=== PATIENT | male | born 1950 | race Caucasian/White ===

== ENCOUNTER 2018-07-28 18:42 | Inpatient (IN) | payer OTHER ==
--- OUTSIDE RECORDS SUMMARY | 2018-07-28 18:45 | XMS REPORT ---
:1950 Author Organization [facility] Address [address] [place] [address] Care Team Providers Name Role Phone LIBRADO OLIVEROS Unavailable Unavailable Problems This patient has no known problems. Allergies, Adverse Reactions, Alerts This patient has no known allergies or adverse reactions. Medications This patient has no known medications. Results Test Description Test Time Test Comments Text Results Atomic Results Result Comments PROTEIN ELECTROPHORESIS, SERUM 2017-02-05 14:04:00 Test Item Value Reference Range Comments ALBUMIN FRACTION (BEAKER) (test 3.6 g/dL 3.5-5.5 zejd=765) ALPHA 1 FRACTION (BEAKER) (test 0.3 g/dL 0.2-0.4 jltp=362) ALPHA 2 FRACTION (BEAKER) (test 0.7 g/dL 0.5-0.9 qiwr=932) BETA FRACTION (BEAKER) (test 0.9 g/dL 0.6-1.1 wfbe=759) GAMMA GLOBULIN FRACTION (BEAKER) 1.1 g/dL 0.7-1.7 (test mzwc=530) INTERPRETATION-119 (BEAKER) (test All fractions present in the expected tjim=5622) distribution. No monoclonal bands detected. MTDC-AEIJTLGHZAT-688 (BEAKER) (test Lauren Abdullahi MD (electronic bwxx=3527) signature) PROTEIN TOTAL SERUM, SPEP (BEAKER) 6.6 gm/dL 6.0-8.3 (test nclw=4523) CSF CELL COUNT [id number] 17:01:00 Test Item Value Reference Range Comments APPEARANCE CSF (BEAKER) (test xtkj=775) Clear Clear COLOR CSF (BEAKER) (test vxgn=272) Colorless Colorless RBC CSF (BEAKER) (test ifex=708) 3 /cu mm 0-5 WBC CSF (BEAKER) (test rvjm=5493) 1 /cu mm <=5 RBCS FRESH (BEAKER) (test uega=5064) 100% Fresh NUMBER OF CELLS DIFF'D (BEAKER) (test ykzk=4666) 4 NEUTROPHIL, CSF (BEAKER) (test qkwy=425) 0 % 0-5 LYMPHS CSF (BEAKER) (test xqgt=200) 50 % 40-80 MONO/MACROPHAGE CSF (BEAKER) (test rjdo=489) 50 % 15-45 EOSINOPHILS CSF (BEAKER) (test bhyd=216) 0 % <=0 BASO CSF (BEAKER) (test wtyl=513) 0 % <=0 TUBE NUMBER CSF (BEAKER) (test cnug=4121) 1 PROTEIN, [id number] 14:41:00 Test Item Value Reference Range Comments PROTEIN CSF (BEAKER) (test fjwq=470) 42 mg/dL 15-45 GLUCOSE, [id number] 14:35:00 Test Item Value Reference Range Comments GLUCOSE CSF (BEAKER) (test hnwt=657) 58 mg/dL 40-70
--- OUTSIDE RECORDS SUMMARY | 2018-07-28 18:45 | XMS REPORT | Clinical Summary ---
:1950 Author Organization [facility] Address [address] [place] [address] Care Team Providers Name Role Phone Ranjit Davis MD Primary Care Provider Allergies No Known Allergies Current Medications Prescription Sig. Disp. Refills Start Date End Date Status azaTHIOprine (IMURAN) 50 09/07/2016 Active mg tablet ZETIA 10 mg tablet 07/06/2016 Active lisinopril 08/01/2016 Active (PRINIVIL,ZESTRIL) 10 mg tablet predniSONE (DELTASONE) 5 Take 10 mg by 3 09/15/2016 Active mg tablet mouth once daily. omeprazole (PriLOSEC) 20 Take 20 mg by Active MG capsule mouth daily. etodolac (LODINE) 300 MG Take 300 mg by Active capsule mouth every 8 (eight) hours. leflunomide (ARAVA) 20 MG Take 20 mg by Active tablet mouth daily. Active Problems Problem Noted Date Tendinitis of right rotator cuff 07/13/2018 Tear of right rotator cuff 07/13/2018 Impingement syndrome of right shoulder 06/01/2018 Osteoarthritis of right knee 10/01/2016 Encounters Date Type Specialty Care Team Description 07/13/2018 Office Visit Orthopedic Surgery Abdias Aguilar, Tear of right rotator cuff, unspecified tear extent (Primary Dx); Impingement syndrome of right shoulder; Tendinitis of right rotator cuff 06/01/2018 Office Visit Orthopedic Surgery Abdias Aguilar, Impingement syndrome of right shoulder (Primary Dx); Right shoulder pain, unspecified chronicity after 07/27/2017 Social History Tobacco Use Types Packs/Day Years Used Date Former Smoker Comments: quit at age 39 Alcohol Use Drinks/Week oz/Week Comments Yes social Sex Assigned at Date Recorded Not on file Last Filed Vital Signs Not on file Plan of Treatment Date Type Specialty Care Team Description 08/10/2018 Office Visit Orthopedic Surgery Abdias Aguilar MD [address] [address] Health Maintenance Due Date Last Done Comments COLON CANCER SCREENING 1999 SHINGRIX VACCINE (#1) 1999 ZOSTER VACCINE 2009 PNEUMOCOCCAL POLYSACCHARIDE VACCINE AGE 65 AND OVER 2014 PNEUMOCOCCAL-13 2014 INFLUENZA VACCINE 05/27/2018 Implants Implanted Type Area Senior Data Developer Device Expiration Model / Identifier Date Serial / Lot Advance Evolution Pin Pack 3 Long & 2 Collared Sterile - [id number] IPM IMPLANT Right: MICROPORT 08/06/2024 [id number] / Implanted: Qty: 1 on 10/01/2016 by Roberto Lambert MD DEVICES Knee ORTHOPEDICS / [id number] Evolutionmp Femoral Cs/Cr Non-Por Size 7 Primary Right - [id number] IPM IMPLANT Right: MICROPORT 06/11/2024 [id number] / Implanted: Qty: 1 on 10/01/2016 by Roberto Lambert MD DEVICES Knee ORTHOPEDICS / [id number] Evolutionmp Tibial Keeled Nonpor Size 7 Standard Right - [id number] [id number] IMPLANT Right: MICR[employer]ORT 07/11/2024 [id number] / Implanted: Qty: 1 on 10/01/2016 by Roberto Lambert MD DEVICES Knee ORTHOPEDICS / [id number] Evolution Mp Cs Insert Size 7 Standard 10mm Right - [id number] IPM IMPLANT Right: MICROPORT 04/30/2024 [id number] / Implanted: Qty: 1 on 10/01/2016 by Roberto Lambert MD DEVICES Knee ORTHOPEDICS / [id number] Evolution Pin Pack 3 Long & 2 Collared Sterile - [id number] IPM IMPLANT N/A: MICROPORT 09/26/2021 [id number] / Implanted: 10/02/2016 (Quantity not on file) DEVICES N/A ORTHOPEDICS / [id number] Cement Bone R+G 1dose Palacos - [id number] Knee Joint Right: [employer] [id number] / Implanted: Qty: 1 on 10/01/2016 by Roberto Lambert MD Implants Knee / [id number] Cement Bone R+G 1dose Palacos - [id number] Knee Joint Right: [employer] [id number] / Implanted: Qty: 1 on 10/01/2016 by Roberto Lambert MD Implants Knee / [id number] Patella Onlay 3peg 38mm Pe Advance - [id number] Knee Joint Right: MICROPORT 04/26/2022 [id number] / Implanted: Qty: 1 on 10/01/2016 by Roberto Lambert MD Implants Knee / [id number] Procedures Procedure Name Priority Date/Time Associated Comments Diagnosis SC ARTHROCENTESIS Routine 07/13/2018 12:30 Tear of right Results for this ASPIR&/INJ MAJOR PM CDT rotator cuff, procedure are in JT/BURSA W/O US unspecified tear the results extent section. Impingement syndrome of right shoulder Tendinitis of right rotator cuff SC ARTHROCENTESIS Routine 06/01/2018 9:00 Right shoulder Results for this ASPIR&/INJ MAJOR AM CDT pain, unspecified procedure are in JT/BURSA W/O US chronicity the results Impingement section. syndrome of right shoulder XR SHOULDER 2+ VW RIGHT Routine 06/01/2018 8:51 Right shoulder Results for this AM CDT pain, unspecified procedure are in chronicity the results section. after 07/27/2017 Results Large Joint Arthrocentesis (07/13/2018 12:30 PM) Narrative Performed At Abdias Aguilar MD 07/14/20182:20 PM Large Joint Arthrocentesis Consent given by: patient Supporting Documentation Indications: pain Procedure Details Ultrasound guided: no Platelet Rich Plasma Used: no PRP Used Location: shoulder - R subacromial bursa Right side: Needle size: 25 G Approach: posterior Right shoulder medications administered: 10 mL lidocaine 10 mg/mL (1 %); 6 mg betamethasone acetate & sodium phosphate 6 mg/mL Patient tolerance: patient tolerated the procedure well with no immediate complications Large Joint Arthrocentesis (06/01/2018 9:00 AM) Narrative Performed At Abdias Aguilar MD 06/01/20186:01 PM Large Joint Arthrocentesis Consent given by: patient Supporting Documentation Indications: pain Procedure Details Ultrasound guided: no Platelet Rich Plasma Used: no PRP Used Location: shoulder - R subacromial bursa Right side: Needle size: 25 G Approach: posterior Right shoulder medications administered: 10 mL lidocaine 10 mg/mL (1 %); 6 mg betamethasone acetate & sodium phosphate 6 mg/mL Patient tolerance: patient tolerated the procedure well with no immediate complications XR Shoulder 2+ Vw Right (06/01/2018 8:51 AM) Narrative Performed At 3 views right shoulder in good penetrance and quality with out any acute [facility] obvious fractures, dislocations or calcifications unless HPI states otherwise. Performing Organization Address City/State/Zipcode Phone Number [facility] [address] [place] [address] after 07/27/2017 Insurance Payer Benefit Plan / Group Subscriber ID Type Phone Address A[employer]NA MEDICARE AETNA MEDICARE HMO/PPO [facility] xxxxxxxx HMO Work: [address] [phone] [place], [place] [address] Home: [phone]
--- OUTSIDE RECORDS SUMMARY | 2018-07-28 18:45 | XMS REPORT | Clinical Summary ---
:1950 Author Organization [facility] Address [address] [place] [address] Phone Care Team Providers Name Role Phone Unavailable Primary Care Provider Unavailable Allergies No Known Allergies Current Medications Prescription Sig. Disp. Refills Start Date End Date Status aspirin 81 MG EC tablet Take 81 mg by mouth Active daily. ezetimibe (ZETIA) 10 mg Take 10 mg by mouth Active tablet daily. omeprazole (PRILOSEC) 20 Take 20 mg by mouth Active MG capsule daily. LISINOPRIL ORAL Take 20 mg by Active mouth. celecoxib (CELEBREX) 200 Take 200 mg by Active MG capsule mouth every 12 (twelve) hours as needed for Pain. cholecalciferol, vitamin Take 50,000 Units Active D3, 50,000 unit Tab by mouth daily. Active Problems Not on file Social History Tobacco Use Types Packs/Day Years Used Date Former Smoker Alcohol Use Drinks/Week oz/Week Comments Yes ocassionaly 4 drinks a month Sex Assigned at Date Recorded Not on file Last Filed Vital Signs Not on file Plan of Treatment Not on file Results Not on fileafter 07/27/2017
[2018-07-28] MEDS ORDERED: ACETAMINOPHEN 500 MG TAB ONE (19:42)
[2018-07-28] MEDS ORDERED: PIPER/TAZO/NS 3.375gm 3.375 GM/100 ML BAG ONE (19:42)
[2018-07-28] MEDS ORDERED: NA CHLORIDE 0.9% 1,000 ML ONE (19:42)
[2018-07-28 19:49] LABS: Absolute Lymphocytes (CBC) 1.2 K/uL (0.7-4.9); Absolute Monocytes 1.8 K/uL (0.1-1.3); Absolute Neutrophil 14.7 K/uL (1.8-8.0); Basophils % 0.3 % (0-1.3); Eosinophils % 0.2 % (0-4.4); Hematocrit 41.2 % (39.6-49.0); Lymphocytes % 6.6 % (15.3-44.8); MCH 28.6 pg (27.0-35.0); MCV 84.4 fL (80-100); RBC Red Blood Cell Count 4.89 M/uL (4.33-5.43)
[2018-07-28 19:50] LABS: Protime INR 1.39
[2018-07-28 20:08] LABS: ALT/SGPT 26 U/L (12-78); AST/SGOT 18 U/L (15-37); Albumin 3.5 g/dL (3.4-5.0); Alkaline Phosphatase 81 U/L (45-117); BUN Blood Urea Nitrogen 14 mg/dL (7-18); Bicarbonate 23 mmol/L (21-32); Bilirubin Direct 0.2 mg/dL (0-0.2); Bilirubin Total 0.7 mg/dL (0.2-1.0); Glucose Level 107 mg/dL (74-106); Potassium 3.6 mmol/L (3.5-5.1); Sodium Level 134 mmol/L (136-145); Troponin (Emerg Dept Use Only) < 0.02 ng/mL (0.0-0.045)
--- NOTE | 2018-07-28 20:34 | RAD REPORT ---
EXAM DESCRIPTION: RAD - Chest Single View - 07/28/2018 8:26 pm CLINICAL HISTORY: chest heaviness, fever Chest pain. COMPARISON: Chest Pa And Lat (2 Views) dated 01/01/2017; Chest Single View dated 10/13/2016; Chest Sin gle View dated 10/12/2016; Chest Pa And Lat (2 Views) dated 03/18/2016 FINDINGS: Portable technique limits examination quality. The lungs are grossly clear. The heart is normal in size. No displaced fractures. IMPRESSION: No acute intrathoracic process suspected.
[2018-07-28 20:51] LABS: Urine Blood TRACE (NEG); Urine Glucose NEGATIVE (NEG); Urine Protein NEGATIVE (NEG)
[2018-07-28 21:21] LABS: Urine Bacteria <20 /HPF (NONE SEEN); Urine Culture Reflex Order REFLEXED; Urine RBC <5 /HPF (NONE SEEN)
[2018-07-28] MEDS ORDERED: FENTANYL CITR 100 MCG/2 ML ONE (21:38)
[2018-07-28] MEDS ORDERED: ONDANSETRON 4 MG/2 ML VIAL ONE (21:41)
--- NOTE | 2018-07-28 22:00 | ER ---
Nurse's Notes [facility] Name: Domingo Carnes Jr Age: 68 yrs Sex: Male : 1950 Arrival Date: 07/28/2018 Time: 18:45 Bed 23 Private MD: Amilcar Davis B Diagnosis: Acute UTI;Sepsis Presentation: 07/28 18:55 Presenting complaint: Patient states: "I have a bladder infection. I had a culture run aj1 at Dr. Barboza's office this morning. He gave me some pills, but I started running fever of 100.4, so we called Dr. Barboza and he said to come to the ER because the medicine he gave me might not be working. Dr. Barboza also said to call him". Transition of care: patient was not received from another setting of care. Onset of symptoms was July 28, 2018. Risk Assessment: Do you want to hurt yourself or someone else? Patient reports no desire to harm self or others. Initial Sepsis Screen: Does the patient meet any 2 criteria? No. Patient's initial sepsis screen is negative. Does the patient have a suspected source of infection? Yes: Dysuria/Frequency/Urgency/UTI. Care prior to arrival: None. 18:55 Method Of Arrival: Wheelchair aj1 18:55 Acuity: WHITLEY 3 aj1 Triage Assessment: 18:58 General: Appears in no apparent distress. uncomfortable, Behavior is calm, cooperative, aj1 appropriate for age. Pain: Complains of pain in generalized body aches Pain currently is 8 out of 10 on a pain scale. Neuro: Level of Consciousness is awake, alert, obeys commands. Cardiovascular: Patient's skin is warm and dry. Respiratory: Airway is patent Respiratory effort is even, unlabored, Respiratory pattern is regular, symmetrical. Historical: - Allergies: 18:58 No Known Allergies; aj1 - Home Meds: 18:58 aspirin 81 mg Oral chew 1 tab once daily [Active]; lisinopril 10 mg Oral tab 1 tab once aj1 daily [Active]; omeprazole 20 mg Oral TbEC daily [Active]; Zetia 10 mg Oral tab 1 tab once daily [Active]; Bactrim DS 800-160 mg Oral tab 1 tab every 12 hours [Active]; 19:02 leflunomide oral oral [Active]; aj1 - PMHx: 18:58 BRADYCARDIA; High Cholesterol; vasculitis; Hypertension; aj1 - Immunization history:: Flu vaccine is not up to date. - Social history:: Smoking status: Patient/guardian denies using tobacco. - Ebola Screening: : Patient denies travel to an Ebola-affected area in the 21 days before illness onset. - Family history:: not pertinent. - Hospitalizations: : No recent hospitalization is reported. Screenin:57 Abuse screen: Denies threats or abuse. Denies injuries from another. Nutritional rv screening: No deficits noted. Tuberculosis screening: No symptoms or risk factors identified. Fall Risk None identified. Assessment: 19:30 General: Appears in no apparent distress. comfortable, Behavior is calm, cooperative. rv 19:30 Pain: Complains of pain in GENERALIZED. Neuro: Level of Consciousness is awake, alert, rv obeys commands, Oriented to person, place, time, situation. Cardiovascular: Capillary refill < 3 seconds. Respiratory: Airway is patent. GI: No signs and/or symptoms were reported involving the gastrointestinal system. : No signs and/or symptoms were reported regarding the genitourinary system. EENT: No signs and/or symptoms were reported regarding the EENT system. Derm: Skin is intact. 21:23 Reassessment: Patient appears in no apparent distress at this time. Patient and/or rv family updated on plan of care and expected duration. Pain level reassessed. Patient is alert, oriented x 3, equal unlabored respirations, skin warm/dry/pink. UPDATED PATIENT AND RELATIVE. Vital Signs: 18:58 BP 106 / 88; Pulse 86; Resp 20; Temp 99.1(O); Pulse Ox 98% on R/A; Weight 113.4 kg (R); aj1 Height 5 ft. 9 in. (175.26 cm) (R); 19:58 Pulse 73; Temp 98.7(O); Pulse Ox 97% ; rv 21:22 BP 121 / 72; Pulse 68; Pulse Ox 94% on R/A; rv 23:10 BP 110 / 41; Pulse 92; Pulse Ox 98% on R/A; rv 18:58 Body Mass Index 36.92 (113.40 kg, 175.26 cm) aj1 ED Course: 18:45 Patient arrived in ED. rg4 18:45 Amilcar Davis MD is Private Physician. rg4 18:57 Triage completed. aj1 18:58 Arm band placed on Patient placed in waiting room, Patient notified of wait time. aj1 19:04 Edis Sullivan MD is Attending Physician. wa 19:30 Inserted saline lock: 20 gauge in right antecubital area, using aseptic technique. rv Blood collected. 19:57 Patient has correct armband on for positive identification. Bed in low position. Call rv light in reach. Side rails up X 1. Adult w/ patient. monitoring and evaluation advisor on. Pulse ox on. NIBP on. 20:06 Lab(s) recollected, by me, sent to lab. Urine collected: clean catch specimen, clear, jp3 jayashree colored. 20:26 Chest Single View XRAY In Process Unspecified. EDMS 20:49 Basic Metabolic Panel Sent. rv 22:00 Gaurang Espinosa MD is Hospitalizing Provider. wa 22:16 Urine Culture Sent. rv 23:11 No provider procedures requiring assistance completed. Patient admitted, IV remains in rv place. intact. Administered Medications: 19:29 CANCELLED (UA culture resistant inthe past): Rocephin - (cefTRIAXone) 2 grams IVPB once wa over 30 mins; (mix in 100 mL NS) 19:54 Drug: Zosyn 3.375 grams Route: IVPB; Infused Over: 60 mins; Site: right antecubital; rv 20:27 Follow up: IV Status: Completed infusion rv 19:55 Drug: NS 0.9% 1000 ml Route: IV; Rate: 1000 ml; Site: right antecubital; rv 20:27 Follow up: IV Status: Completed infusion rv 19:58 Drug: Acetaminophen 1000 mg Route: PO; rv 20:49 Follow up: Response: No adverse reaction rv 21:40 Drug: fentaNYL (PF) 50 mcg Route: IVP; Site: right antecubital; rv 21:40 Drug: Zofran 2 mg Route: IVP; Site: right antecubital; rv Outcome: 22:00 Decision to Hospitalize by Provider. wa 23:11 Admitted to Tele accompanied by tech, via wheelchair, room 422, with chart, Report rv called to MARIELA OTT 23:11 Condition: good 23:11 Instructed on the need for admit. 23:32 Patient left the ED. rv Signatures: Dispatcher [employer] Missy Beckett RN RN aj1 Char Gayle rg4 Edis Sullivan MD MD wa Vicente, Ronaldo, RN RN rv Donnell Boogie jp3
--- NOTE | 2018-07-28 22:01 | EDPHYS ---
Physician Documentation [facility] Name: Domingo Carnes Jr Age: 68 yrs Sex: Male : 1950 Arrival Date: 07/28/2018 Time: 18:45 Bed 23 Private MD: Amilcar Davis B ED Physician Edis Sullivan HPI: 07/28 19:19 This 68 yrs old Male presents to ER via Wheelchair with complaints of Pain wa All Over, Fever. 19:19 The patient presents with urinary symptoms, dysuria, urinary frequency. Onset: The wa symptoms/episode began/occurred 2 day(s) ago. Modifying factors: The symptoms are alleviated by nothing, the symptoms are aggravated by urinating. Associated signs and symptoms: Pertinent positives: dysuria, fever, nausea, vomiting, chills, Pertinent negatives: abdominal pain, constipation, diarrhea, hematuria. Severity of symptoms: At their worst the symptoms were moderate, in the emergency department the symptoms are actually worse, moderately. The patient has experienced similar episodes in the past, several times. The patient has been recently seen by a physician: Dr. Barboza. 68 yo M h/o ureteral strictures. gets serial dilatations from Dr. Barboza Q 6 months. h/o UTI sepsis in the past. states began feeling bad day before last. noted urine cloudy, stings a bit when urinates with assoc frequency. went to Dr. Barboza's office and had a urine dip stick and placed on bactrim today. tonight developed a fever and advised by Dr. Barboza to come in a get checked. states vomit x 1 yesterday. denies abd pain or diarrhea. admits to chest heaviness and mild SOB on ROS. Historical: - Allergies: 18:58 No Known Allergies; aj1 - Home Meds: 18:58 aspirin 81 mg Oral chew 1 tab once daily [Active]; lisinopril 10 mg Oral tab 1 tab once aj1 daily [Active]; omeprazole 20 mg Oral TbEC daily [Active]; Zetia 10 mg Oral tab 1 tab once daily [Active]; Bactrim DS 800-160 mg Oral tab 1 tab every 12 hours [Active]; 19:02 leflunomide oral oral [Active]; aj1 - PMHx: 18:58 BRADYCARDIA; High Cholesterol; vasculitis; Hypertension; aj1 - Immunization history:: Flu vaccine is not up to date. - Social history:: Smoking status: Patient/guardian denies using tobacco. - Ebola Screening: : Patient denies travel to an Ebola-affected area in the 21 days before illness onset. - Family history:: not pertinent. - Hospitalizations: : No recent hospitalization is reported. ROS: 19:24 Eyes: Negative for injury, pain, redness, and discharge, ENT: Negative for injury, wa pain, and discharge, Neck: Negative for injury, pain, and swelling, Abdomen/GI: Negative for abdominal pain, nausea, vomiting, diarrhea, and constipation, Back: Negative for injury and pain, MS/Extremity: Negative for injury and deformity, Skin: Negative for injury, rash, and discoloration, Neuro: Negative for headache, weakness, numbness, tingling, and seizure, Psych: Negative for depression, anxiety, suicide ideation, homicidal ideation, and hallucinations. 19:24 Constitutional: Positive for body aches, chills, fatigue, fever, malaise, poor PO intake, Negative for weight loss. 19:24 Cardiovascular: Positive for chest pain, Negative for edema, orthopnea, palpitations, paroxysmal nocturnal dyspnea. 19:24 Respiratory: Positive for shortness of breath, Negative for cough, hemoptysis, orthopnea, sputum production, wheezing. 19:24 : Positive for urinary symptoms, urinary frequency, burning with urination, foul smelling urine, Negative for hematuria, flank pain, penile discharge. Exam: 19:26 Head/Face: Normocephalic, atraumatic. Eyes: Pupils equal round and reactive to light, wa extra-ocular motions intact. Lids and lashes normal. Conjunctiva and sclera are non-icteric and not injected. Cornea within normal limits. Periorbital areas with no swelling, redness, or edema. ENT: Nares patent. No nasal discharge, no septal abnormalities noted. Tympanic membranes are normal and external auditory canals are clear. Oropharynx with no redness, swelling, or masses, exudates, or evidence of obstruction, uvula midline. Mucous membranes moist. Neck: Trachea midline, no thyromegaly or masses palpated, and no cervical lymphadenopathy. Supple, full range of motion without nuchal rigidity, or vertebral point tenderness. No Meningismus. Chest/axilla: Normal chest wall appearance and motion. Nontender with no deformity. No lesions are appreciated. Cardiovascular: Regular rate and rhythm with a normal S1 and S2. No gallops, murmurs, or rubs. Normal PMI, no JVD. No pulse deficits. Respiratory: Lungs have equal breath sounds bilaterally, clear to auscultation and percussion. No rales, rhonchi or wheezes noted. No increased work of breathing, no retractions or nasal flaring. Abdomen/GI: Soft, non-tender, with normal bowel sounds. No distension or tympany. No guarding or rebound. No evidence of tenderness throughout. Back: No spinal tenderness. No costovertebral tenderness. Full range of motion. Skin: Warm, dry with normal turgor. Normal color with no rashes, no lesions, and no evidence of cellulitis. MS/ Extremity: Pulses equal, no cyanosis. Neurovascular intact. Full, normal range of motion. Neuro: Awake and alert, GCS 15, oriented to person, place, time, and situation. Cranial nerves II-XII grossly intact. Motor strength 5/5 in all extremities. Sensory grossly intact. Cerebellar exam normal. Normal gait. Psych: Awake, alert, with orientation to person, place and time. Behavior, mood, and affect are within normal limits. 19:26 Constitutional: The patient appears in no acute distress, alert. 19:26 : CVA tenderness, is absent, Bladder: is normal, non-distended, tenderness, that is mild. Vital Signs: 18:58 BP 106 / 88; Pulse 86; Resp 20; Temp 99.1(O); Pulse Ox 98% on R/A; Weight 113.4 kg (R); aj1 Height 5 ft. 9 in. (175.26 cm) (R); 19:58 Pulse 73; Temp 98.7(O); Pulse Ox 97% ; rv 21:22 BP 121 / 72; Pulse 68; Pulse Ox 94% on R/A; rv 23:10 BP 110 / 41; Pulse 92; Pulse Ox 98% on R/A; rv 18:58 Body Mass Index 36.92 (113.40 kg, 175.26 cm) aj1 MDM: 19:05 Patient medically screened. wa 19:26 Differential diagnosis: r/o UTI sepsis. will check previous antibiograms for wa sensitivity to guide treatment. will plan to admit. will check and r/o ACS. 21:56 Data reviewed: vital signs, nurses notes, lab test result(s), EKG, radiologic studies. de Test interpretation: by ED physician or midlevel provider: CXR: normal. 21:56 Test interpretation: by ED physician or midlevel provider: labs noted for leukocytosis. de 21:56 Test interpretation: by ED physician or midlevel provider: EKG: HR 74. incomplete RBBB. wa LAD. non-specific ST-T changes. 21:57 Test interpretation: by ED physician or midlevel provider: labs noted for >50 wbc on de urine microscopy. Response to treatment: the patient's symptoms have markedly improved after treatment. Physician consultation: Gaurang Espinosa MD. Admission orders: after a detailed discussion of the patient's condition and case, the admit orders are written by me. ED course: noted susceptible to zosyn from previous cultures. IV given. saline bolus given. nml troponin. will admit. continue abx IV. will consult Dr. Barboza routinely. 07/28 19:15 Order name: Basic Metabolic Panel de 07/28 19:15 Order name: Blood Culture Adult (2) de 07/28 19:15 Order name: CBC with Diff; Complete Time: 21:02 de 07/28 19:15 Order name: Lactate; Complete Time: 21:00 de 07/28 19:15 Order name: LFT's; Complete Time: 21:02 de 07/28 19:15 Order name: Protime (+inr); Complete Time: 21:02 de 07/28 19:15 Order name: Troponin (emerg Dept Use Only); Complete Time: 21:01 de 07/28 19:15 Order name: Urine Microscopic Only; Complete Time: 21:28 de 07/28 19:15 Order name: Chest Single View XRAY; Complete Time: 21:01 de 07/28 19:16 Order name: Basic Metabolic Panel; Complete Time: 21:02 [facility] 07/28 20:25 Order name: Urine Dipstick--Ancillary (enter results); Complete Time: 21:00 [facility] 07/28 21:23 Order name: Urine Culture [facility] 07/28 19:15 Order name: Cardiac monitoring; Complete Time: 20:27 de 07/28 19:15 Order name: EKG - Nurse/Tech; Complete Time: 20:27 de 07/28 19:15 Order name: IV Saline Lock - Large Bore; Complete Time: 19:54 wa 07/28 19:15 Order name: Labs collected and sent; Complete Time: 19:54 de 07/28 19:15 Order name: O2 Sat Monitoring; Complete Time: 19:55 de 07/28 19:15 Order name: Urine Dipstick-Ancillary (obtain specimen); Complete Time: 20:49 wa Administered Medications: 19:29 CANCELLED (UA culture resistant inthe past): Rocephin - (cefTRIAXone) 2 grams IVPB once wa over 30 mins; (mix in 100 mL NS) 19:54 Drug: Zosyn 3.375 grams Route: IVPB; Infused Over: 60 mins; Site: right antecubital; rv 20:27 Follow up: IV Status: Completed infusion rv 19:55 Drug: NS 0.9% 1000 ml Route: IV; Rate: 1000 ml; Site: right antecubital; rv 20:27 Follow up: IV Status: Completed infusion rv 19:58 Drug: Acetaminophen 1000 mg Route: PO; rv 20:49 Follow up: Response: No adverse reaction rv 21:40 Drug: fentaNYL (PF) 50 mcg Route: IVP; Site: right antecubital; rv 21:40 Drug: Zofran 2 mg Route: IVP; Site: right antecubital; rv Disposition: 07/28/18 22:00 Hospitalization ordered by Gaurang Espinosa for Inpatient Admission. Preliminary diagnosis are Acute UTI, Sepsis. - Bed requested for Telemetry/MedSurg (Inpatient). - Status is Inpatient Admission. rv - Condition is Stable. - Problem is new. - Symptoms have improved. UTI on Admission? Yes Signatures: Dispatcher [employer] [facility] Missy Benavides RN RN aj1 Estefania Bassett RN RN Edis Sullivan MD MD wa Vicente, Ronaldo, RN RN rv Corrections: (The following items were deleted from the chart) 19:29 19:17 Rocephin - (cefTRIAXone) 2 grams IVPB once over 30 mins; (mix in 100 mL NS) wa ordered. wa 22:31 22:00 Hospitalization Ordered by Gaurang Espinosa MD for Inpatient Admission. Preliminary diagnosis is Acute UTI; Sepsis. Bed requested for Telemetry/MedSurg (Inpatient). Status is Inpatient Admission. Condition is Stable. Problem is new. Symptoms have improved. UTI on Admission? Yes. de 23:32 22:31 07/28/2018 22:00 Hospitalization Ordered by Gaurang Espinosa MD for Inpatient rv Admission. Preliminary diagnosis is Acute UTI; Sepsis. Bed requested for Telemetry/MedSurg (Inpatient). Status is Inpatient Admission. Condition is Stable. Problem is new. Symptoms have improved. UTI on Admission? Yes. mw
--- NOTE | 2018-07-28 23:14 | P.HP ---
Certification for Inpatient Patient admitted to: Inpatient With expected LOS: >2 Midnights Practitioner: I am a practitioner with admitting privileges, knowledge of patient current condition, hospital course, and medical plan of care. Services: Services provided to patient in accordance with Admission requirements found in Title 42 Section 412.3 of the Code of Federal Regulations Patient History Date of Service: 07/28/18 Reason for admission: Sepsis, UTI History of Present Illness: Mr Carnes is a 68-year-old male with history of obesity, hypertension, recurrent UTI episode, urethral strictures with frequent dilation procedure in Dr. Barboza's office. This morning the patient started feeling burning urination , subjective fever, similar symptoms to previous episode of UTI. He went to see Dr. Barboza who prescribed oral antibiotics. However the patient was feeling worse and he decided to come to ER for evaluation. At arrival his temp was 99.1 F, BP 106/88, HR 86 bpm. Lab work remarkable for leukocytosis 17.7 K, normal lactate. UA abnormal consistent with UTI Allergies No Known Allergies Allergy (Verified 02/05/16 09:33) Home medications list reviewed: Yes Home Medications: Aspirin [Ecotrin 81 MG] 81 mg PO DAILY 07/14/15 Cholecalciferol (Vitamin D3) [Vitamin D3] 1 tab PO DAILY 07/14/15 Etodolac [Lodine Xl] 500 mg PO DAILY 07/14/15 Ezetimibe [Zetia*] 10 mg PO DAILY 07/14/15 Lisinopril [Prinivil*] 10 mg PO DAILY 07/14/15 Omeprazole Magnesium [Prilosec Otc] 20 mg PO DAILY 07/14/15 azaTHIOprine [Imuran*] 50 mg PO BID 07/14/15 Hydrocodone 10/APAP 325 [Taylor 10/325*] 1 tab PO Q4H PRN 10/12/16 Ibuprofen/Famotidine [Duexis 800-26.6 mg Tablet] 26.6 - 800 mg PO BID 10/12/16 Ondansetron [Zofran (Odt)*] 4 mg PO Q6H PRN 10/12/16 predniSONE [Prednisone*] 5 mg PO DAILY 10/12/16 Sulfamethoxazole/Trimethoprim [Bactrim Ds Tablet] 1 each PO BID #20 tablet 10/15 predniSONE [Deltasone*] 10 mg PO SEECOM #6 tab 10/15/16 - Past Medical/Surgical History Diabetic: No -: hyperlipidemia -: Hypertension -: Recurrent UTI -: Urethral strictures -: right knee replacement -: left ankle surgery x2 -: Cystoscopy -: Urethral dilation procedure - Family History Mother -: Heart disease Father -: Heart disease Notes: arthritis - Social History Smoking Status: Former smoker Alcohol use: No CD- Drugs: No Caffeine use: Yes Place of Residence: Home Review of Systems 10-point ROS is otherwise unremarkable Physical Examination - Physical Exam General: Alert, In no apparent distress HEENT: Atraumatic, PERRLA, Mucous membr. moist/pink, EOMI, Sclerae nonicteric Neck: Supple, 2+ carotid pulse no bruit, No LAD, Without JVD or thyroid abnormality Respiratory: Clear to auscultation bilaterally, Normal air movement Cardiovascular: Regular rate/rhythm, Normal S1 S2 Gastrointestinal: Normal bowel sounds, No tenderness Musculoskeletal: No tenderness, Swelling (Lower extremity edema 1+ bilaterally) Integumentary: No rashes Neurological: Normal speech, Normal strength at 5/5 x4 extr, Normal tone, Normal affect Lymphatics: No axilla or inguinal lymphadenopathy - Studies Laboratory Data (last 24 hrs) 07/28/18 19:30: PT 16.4 H, INR 1.39 07/28/18 19:30: WBC 17.7 H, Hgb 14.0, Hct 41.2, Plt Count 248 07/28/18 19:30: Sodium 134 L, Potassium 3.6, BUN 14, Creatinine 1.10, Glucose 107 H, Total Bilirubin 0.7, AST 18, ALT 26, Alkaline Phosphatase 81 Assessment and Plan - Problems (Diagnosis) (1) Sepsis Current Visit: Yes Status: Acute Qualifiers: Sepsis type: sepsis due to unspecified organism Qualified Code(s): A41.9 - Sepsis, unspecified organism (2) Hypertension Current Visit: Yes Status: Acute Qualifiers: Hypertension type: essential hypertension Qualified Code(s): I10 - Essential (primary) hypertension (3) UTI (urinary tract infection) Onset Date: 10/14/16 Current Visit: No Status: Acute Qualifiers: Urinary tract infection type: site unspecified Hematuria presence: without hematuria Qualified Code(s): N39.0 - Urinary tract infection, site not specified - Plan The patient will be admitted to the hospital due to sepsis secondary to UTI. Will order empiric treatment with IV Zosyn. Will consult Dr. Barboza for evaluation and recommendations. - Advance Directives Does patient have a Living Will: No Does patient have a Durable POA for Healthcare: No - Code Status/Comfort Care Code Status Assessed: Yes Code Status: Full Code
[2018-07-28] MEDS ORDERED: ACETAMINOPHEN 500 MG TAB PO PRN (23:37)
[2018-07-28] MEDS ORDERED: ONDANSETRON 4 MG/2 ML VIAL IV PRN (23:37)
[2018-07-28] MEDS ORDERED: POTASSIUM 25 MEQ EFFERV TAB PO ONE (23:47)
[2018-07-29] MEDS: NA CHLORIDE 0.9% 1,000 ML IV SCH ×3 (00:20→20:57)
[2018-07-29] MEDS ORDERED: PIPER/TAZO/NS 3.375gm 6.750 GM/200 ML BAG ONE (00:51)
[2018-07-29] MEDS: PIPER/TAZO/NS 3.375gm 3.375 GM/100 ML BAG IVPB SCH ×4 (00:58→17:46)
[2018-07-29 04:59] LABS: Absolute Lymphocytes (CBC) 1.7 K/uL (0.7-4.9); Absolute Monocytes 1.6 K/uL (0.1-1.3); Absolute Neutrophil 10.1 K/uL (1.8-8.0); Basophils % 0.7 % (0-1.3); Eosinophils % 0.6 % (0-4.4); Hematocrit 37.2 % (39.6-49.0); Lymphocytes % 12.2 % (15.3-44.8); MCV 85.5 fL (80-100); MPV 8.5 fL (7.6-11.3); Monocytes % 11.8 % (3.3-12.3); RBC Red Blood Cell Count 4.36 M/uL (4.33-5.43)
[2018-07-29 05:11] LABS: Magnesium 2.4 mg/dL (1.8-2.4); Potassium 4.1 mmol/L (3.5-5.1)
[2018-07-29] MEDS: HOME MED 1 EA UNK (Leflunomide [Leflunomide] 20 MG) PO SCH (09:00)
[2018-07-29] MEDS: ENOXAPARIN 40 MG/0.4 ML SQ SCH (10:26)
[2018-07-29] MEDS: ASPIRIN EC 81 MG TAB PO SCH (10:26)
[2018-07-29] MEDS: EZETIMIBE 10 MG TAB PO SCH (10:28)
--- NOTE | 2018-07-29 10:48 | EKG ---
Test Date: 2018-07-28 Test Time: 20:12:19 Director Of Retail Merchandising: ALLEN MEASUREMENT RESULTS: Intervals: Rate: 74 [place]: 136 QRSD: 94 QT: 416 QTc: 461 [place]: P: 18 [place]: 136 QRS: -50 T: -9 INTERPRETIVE STATEMENTS: Normal sinus rhythm Left anterior fascicular block Nonspecific ST abnormality Abnormal ECG Compared to ECG 10/12/2016 08:53:47 Left anterior fascicular block now present ST (T wave) deviation now present Ventricular premature complex(es) no longer present Left-axis deviation no longer present Electronically Signed On 07-29-18 10:47:29 CDT by Rafael Carnes
[2018-07-29] MEDS: TRAMADOL HCL 50 MG TAB PO PRN ×2 (11:23→20:57)
--- NOTE | 2018-07-29 20:33 | PN ---
Date of Progress Note: 07/29/2018 Subjective: The patient seen and examined. Chart reviewed and case discussed with RN and Dr. Barboza. The patient states he feels significantly better, however, not back to baseline. Still having some generalized malaise. Review of Systems: Negative except as above. Medications: List reviewed. Code Status: Full. Physical Examination: Vital Signs: Temperature 98.5, heart rate 55, blood pressure 113/63, respirations 16, O2 98% on room air. General: Awake, alert, oriented x3. Some mild distress. Elderly male, ill-appearing, obese. CV: S1, S2. No murmurs. Peripheral pulses present. Respiratory: Clear to auscultation bilaterally. No wheezing or stridor. No use of accessory muscle s. Gastrointestinal: Abdomen is soft, nontender, nondistended. Positive bowel sounds. No guarding or rigidity. Extremities: No clubbing, cyanosis, or edema. No calf tenderness. Neuro: Cranial nerves 2 through 12 intact grossly. No focal neurological deficit. Speech is normal . Skin: No rashes. Normal skin turgor. Laboratory Data: Sodium 140, potassium 4.1, chloride 106, CO2 26, BUN 15, creatinine 1.1, glucose 10 0, calcium 8.2, magnesium 2.4. WBC 13.5, H and H 12.6 and 37.2, platelets 214, neutrophils 74%. Assessment And Plan: A 68-year-old male with: 1.Sepsis secondary to urinary tract infection. 2.Urinary tract infection, acute cystitis without hematuria. We will continue with IV antibiotics, failed outpatient treatment. The patient was on Bactrim. Appreciate Dr. Barboza's input. The patient has history of urethral strictures, has had dilatation done by Dr. Barboza's previously. 3.History of essential hypertension. The patient is still hypotensive to normotensive. We will hol d blood pressure medications for now. 4.Obesity, BMI 35. 5.Mixed hyperlipidemia. Continues Zetia. 6.History of urethral strictures. 7.Osteoarthritis. 8.Gastroesophageal reflux disease without esophagitis. Continue Prilosec. 9.Gastrointestinal and deep venous thrombosis prophylaxis addressed. Plan: Continue IV antibiotics. Follow up on urine culture. Likely discharge in the next 24-48 hour s depending on urine culture results and clinical improvement. SA/MODL Voice ID: [id number] Report ID: [id number]
[2018-07-30] MEDS: PIPER/TAZO/NS 3.375gm 3.375 GM/100 ML BAG IVPB SCH ×2 (01:08→09:56)
[2018-07-30 06:09] LABS: Absolute Lymphocytes (CBC) 0.9 K/uL (0.7-4.9); Absolute Monocytes 0.8 K/uL (0.1-1.3); Eosinophils % 3.9 % (0-4.4); Hematocrit 35.8 % (39.6-49.0); Lymphocytes % 12.6 % (15.3-44.8); MCH 29.2 pg (27.0-35.0); MCV 84.9 fL (80-100); MPV 8.1 fL (7.6-11.3); Monocytes % 10.8 % (3.3-12.3); RBC Red Blood Cell Count 4.21 M/uL (4.33-5.43)
[2018-07-30 06:20] LABS: Potassium 3.8 mmol/L (3.5-5.1)
[2018-07-30] MEDS ORDERED: POTASSIUM CL SA 10 MEQ TAB PO ONE (06:32)
[2018-07-30] MEDS: NA CHLORIDE 0.9% 1,000 ML IV SCH (06:54)
[2018-07-30] MEDS: HOME MED 1 EA UNK (Leflunomide [Leflunomide] 20 MG) PO SCH (09:00)
[2018-07-30] MEDS: ASPIRIN EC 81 MG TAB PO SCH (10:01)
[2018-07-30] MEDS: ENOXAPARIN 40 MG/0.4 ML SQ SCH (10:01)
[2018-07-30] MEDS: EZETIMIBE 10 MG TAB PO SCH (10:02)
--- NOTE | 2018-07-30 10:04 | CON ---
History Of Present Illness: This is a pleasant 68-year-old gentleman with history of urethral strictures, came in on April 06, but refused to have the stricture dilated at that time, said he was doing well, so no stricture was dilated. About 2-3 days ago, he started noticing frequency and cloudy urine. Then, he became flushed, noticed decrease in appetite, came to my office yesterday, where UA micro and culture were done. He was prescribed Bactrim antibiotic, but he went home and developed fevers, so he came to the emergency room, where his white count was severely elevated up to 17,700, it is now down to 13,500. The patient has been on Zosyn 3.375 g q.8 hours. He seems to be responding well to that. A urine culture was sent in my office and is pending. Urine culture was also sent to the hospital and is pending. He grew E. coli that was sensitive to Augmentin, Keflex, Cipro, nitrofurantoin, Bactrim back in December 2017. Past Medical History: GERD, high cholesterol, __, history of meatal / urethral strictures. Surgical History: DVIU, ankle and foot surgery, right knee ligament, hemorrhoidectomy, right knee replacement. Family History: Mother had high blood pressure. Father had arthritis. Mother also had high cholesterol, breast cancer, heart disease. Immunizations: Up to date. Social History: Alcohol, drinks about 2 beers per week. No drug use. Home Medications: Bactrim, aspirin, Prinivil, ezetimibe, leflunomide, and tramadol. Review of Systems: A 10-point review of systems otherwise negative. Physical Examination: General Appearance: Normal developed male, in no acute distress. Vital Signs: Temperature 97.5, pulse 62, respirations 16, BP 101/59, saturation 97%. Pain scale 5. HEENT: Atraumatic, normocephalic. CARDIOVASCULAR: Normal S1, S2. LUNGS: Clear. ABDOMEN: Soft, nontender.. : Testicles descended. Phallus normal. DARLENE: Deferred. Laboratory Data: As mentioned above, white count was 17,700, now 13,500, H and H 12 and 37, platelet count 214. Coagulation: PT 16.4, INR 1.39. Chemistry: Sodium 140, potassium 4.1, chloride 106, carbon dioxide 23, BUN 15, creatinine 1.1, GFR 66, glucose 100, calcium 8.2, magnesium 2.4. Urine showed trace blood , nitrite negative, esterase 2+, and urine culture is pending. Blood culture is also pending and will be monitered. Assessment: Urinary tract infection, possible with high fevers, admitted for IV antibiotics, urine culture. We will wait for culture and sensitivity come back also, one was sent in the office also and will see if it comes back first. I would like the patient to go home on antibiotic that will be sensitive to for at least 7 days. EDY/VERONICA Voice ID: [id number] Report ID: [id number] NADIA
--- NOTE | 2018-07-30 17:37 | PN ---
Subjective: The patient is doing well, ready to go home. Objective: Vital Signs: Temperature 98, pulse 65, respirations 18, blood pressure 121/65, 97% satur ations. [place] 7900 [place] [address] on admission. H and H 12 and 35, platelet count 186. Microbiology, urine culture did not grow anything. Anaerobic and aerobic blood cultures negative so far. Assessment: Urinary tract infection, history of strictures. Plan: The patient will go home on cefuroxime b.i.d. He is to follow up with me in 2 weeks for cysto -dilation. He is to call the office tomorrow morning and speak Grace about the final urine culture r esults from the other laboratory that was also sent. EDY/VERONICA Voice ID: [id number] Report ID: [id number]
--- NOTE | 2018-07-31 03:20 | DS ---
Date of Discharge: 07/30/2018 Consultants: Balta Barboza MD with Urology. Procedures: None. Admitting Diagnoses: 1. Sepsis secondary to acute cystitis. 2. Acute cystitis without hematuria with failed outpatient treatment. 3. Essential hypertension. 4. Obesity. 5. Mixed hyperlipidemia. 6. History of urethral stricture. Discharge Diagnoses: 1. Sepsis secondary to acute cystitis, resolved. 2. Urinary tract infection, acute colitis without hematuria, failed outpatient treatment with Bactrim. Repeat urine culture showing mixed maria isabel. 3. History of essential hypertension, stable. 4. Obesity. BMI 35. 5. Mixed hyperlipidemia, on Zetia. 6. History of urethral strictures. 7. Osteoarthritis, generalized. 8. Gastroesophageal reflux disease without esophagitis. Continue Prilosec. Hospital Course: The patient is a 68-year-old male with past medical history of obesity, hypertension, recurrent UTI due to history of urethral strictures, who has had previous dilatation procedures by his urologist, Dr. Barboza. The patient had some dysuria, subjective fever and was started on Bactrim for UTI, however, failed outpatient treatment and therefore was sent to the ER for further evaluation of recurrent symptoms. [place] [address]; was hypotensive, tachycardic. He was found to be septic. His procalcitonin level was 0.12. Lactate was normal. The patient was started on IV antibiotics with Zosyn. His white blood cell count did improve. Cultures were repeated. Blood culture shows no growth to date. Urine culture showed mixed maria isabel. The patient's blood pressure improved. He was no longer febrile. The patient was seen by urologist, Dr. Barboza. He agreed with the treatment. The patient's white count normalized and he was then doing significantly better. He was afebrile. He was tolerating his diet. No nausea or vomiting any further. The patient was then cleared for discharge and was sent home in a stable condition. Activity: As tolerated. Medications: As per medication reconciliation list. I will stop Bactrim due to failed outpatient treatment. Diet: Heart healthy. Followup: Follow up with primary care physician in 2 to 3 days. Follow up with urologist, Dr. Barboza, in 2 weeks. Return to ER for worsening condition. Physical Examination: General: Awake, alert, oriented x3. No acute distress. Obese male. CV: S1, S2. No murmurs. Respiratory: Moving air well bilaterally. Abdomen: Soft, nontender, nondistended. Positive bowel sounds. Extremities: No clubbing, cyanosis, or edema. Neurologic: Nonfocal. Total time spent discharging the patient was 35 minutes. MYRTLE Voice ID: [id number] Report ID: [id number] [facility]
== END 2018-07-30 12:36 | disposition home or self-care (01) | DRG 872 ==
LOC: ER 18:42 → ERHOLD 22:04 → 4TH 23:26
PROVIDERS: ADMIT Internal Medicine; ATTEND Family Medicine
DX: A41.9 Sepsis, unspecified organism (principal); N30.00 Acute cystitis without hematuria; E66.9 Obesity, unspecified; I10 Essential (primary) hypertension; E78.5 Hyperlipidemia, unspecified; K21.9 Gastro-esophageal reflux disease without esophagitis; E78.2 Mixed hyperlipidemia; M19.90 Unspecified osteoarthritis, unspecified site; Z87.891 Personal history of nicotine dependence; Z68.35 Body mass index [BMI] 35.0-35.9, adult
CPT/HCPCS: 36415; 71045; 80048; 80076; 81003; 81015; 83605; 83735; 84145; 84484; 85025; 85610; 87040; 87086; 87088; 93005; 96365; 96375; 99285; J1650; J2405; J2543; J3010; J7030

== ENCOUNTER 2020-07-07 05:53 | Day surgery (SDC) | payer OTHER ==
[2020-06-29 16:18] LABS: Absolute Lymphocytes (CBC) 1.9 K/uL (0.7-4.9); Basophils % 0.3 % (0-1.3); Hematocrit 35.5 % (39.6-49.0); Lymphocytes % 19.7 % (15.3-44.8); MPV 7.9 fL (7.6-11.3); Potassium 4.8 mmol/L (3.5-5.1); RBC Red Blood Cell Count 4.14 M/uL (4.33-5.43)
--- NOTE | 2020-06-29 16:29 | RAD REPORT ---
EXAM DESCRIPTION: RAD - Chest Pa And Lat (2 Views) - 06/29/2020 3:42 pm CLINICAL HISTORY: pre oppending soft tissue mass removal COMPARISON: AP chest July 2018 TECHNIQUE: Frontal and lateral views of the chest were obtained. FINDINGS: The lungs are clear of focal mass or consolidation. Trachea is midline. Heart size is nor mal and central vasculature is within normal limits. No pleural effusion or pneumothorax seen. No a cute bone finding suspected. Displaced rib fractures are present involving the fourth and fifth ribs. These are new from the prior study. No trauma history detailed. No aortic abnormality. IMPRESSION: No acute cardiopulmonary process. Posterior left fourth and fifth displaced rib fractures are present new from the 2018 study. Given th e provided history, these are old fractures.
--- NOTE | 2020-07-04 20:06 | EKG ---
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
--- OUTSIDE RECORDS SUMMARY | 2020-07-07 06:01 | XMS REPORT | Clinical Summary ---
:1950 Author Organization [facility] Address [address] [place] [address] Care Team Providers Name Role Phone Michael Davis MD Primary Care Provider Allergies No Known Allergies Medications Medication Sig Dispensed Refills Start Date End Date Status azaTHIOprine (IMURAN) 50 0 09/07/2016 Active mg tablet ZETIA 10 mg tablet 0 07/06/2016 Active lisinopril 0 08/01/2016 Active (PRINIVIL,ZESTRIL) 10 mg tablet predniSONE (DELTASONE) 5 Take 10 mg by 3 09/15/2016 Active mg tablet mouth once daily. omeprazole (PriLOSEC) 20 Take 20 mg by 0 Active MG capsule mouth daily. etodolac (LODINE) 300 MG Take 300 mg by 0 Active capsule mouth every 8 (eight) hours. leflunomide (ARAVA) 20 Take 20 mg by 0 Active MG tablet mouth daily. Active Problems Problem Noted Date Tendinitis of right rotator cuff 07/13/2018 Tear of right rotator cuff 07/13/2018 Impingement syndrome of right shoulder 06/01/2018 Osteoarthritis of right knee 10/01/2016 Social History Tobacco Use Types Packs/Day Years Used Date Former Smoker Comments: quit at age 39 Alcohol Use Drinks/Week oz/Week Comments Yes social Sex Assigned at Date Recorded Not on file Job Start Date Occupation Industry Not on file Not on file Not on file Travel History Travel Start Travel End No recent travel history available. 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 Device Shelf Model / Identifier Expiration Serial / Lot Date Advance Evolution Pin Pack 3 Long & 2 Collared Sterile - Log [id number] [id number] IMPLANT Right: MICROPORT 08/06/2024 [id number] / Implanted: Qty: 1 on 10/01/2016 by Roberto Lambert MD at [facility] DEVICES Knee ORTHOPEDICS / [id number] Evolutionmp Femoral Cs/Cr Non-Por Size 7 Primary Right - Log [id number] [id number] IMPLANT Right: MICROPORT 06/11/2024 [id number] / Implanted: Qty: 1 on 10/01/2016 by Roberto Lambert MD at [facility] [employer] Knee ORTHOPEDICS / [id number] Evolutionmp Tibial Keeled Nonpor Size 7 Standard Right - Log [id number] [id number] IMPLANT Right: MICROPORT 07/11/2024 [id number] / Implanted: Qty: 1 on 10/01/2016 by Roberto Lambert MD at [facility] [employer] Knee ORTHOPEDICS / [id number] Evolution Mp Cs Insert Size 7 Standard 10mm Right - [id number] IMPLANT Right: MICROPORT 04/30/2024 [id number] / Implanted: Qty: 1 on 10/01/2016 by Roberto Lambert MD at [facility] [employer] Knee ORTHOPEDICS / [id number] Evolution Pin Pack 3 Long & 2 Collared Sterile - Log [id number] [id number] IMPLANT N/A: MICROPORT 09/26/2021 [id number] / Implanted: 10/02/2016 at [facility] (Quantity not on file) DEV ICES N/A ORTHOPEDICS / [id number] Cement Bone R+G 1dose [place]os - [id number] Knee Joint Right: ZIMME [employer] 05/26/2020 [id number] / Implanted: Qty: 1 on 10/01/2016 by Roberto Lambert MD at [facility] Implants Knee / [id number] Cement Bone R+G 1dose [place]os - [id number] Knee Joint Right: [employer] 05/26/2020 [id number] / Implanted: Qty: 1 on 10/01/2016 by Roberto Lambert MD at [facility] Implants Knee / [id number] Patella Onlay 3peg 38mm Pe Advance - [id number] Knee Joint Right: MICROPORT 04/26/2022 [id number] / Implanted: Qty: 1 on 10/01/2016 by Roberto Lambert MD at [facility] Implants Knee / [id number] Results Not on fileafter 07/07/2019 [phone] [id number] (Work) Advance Directives For more information, please contact: [phone] Type Date Recorded Patient [employer]ice [employer] Explanati on Advance Directives, Living Will and Medical Power of Harness Mender
--- OUTSIDE RECORDS SUMMARY | 2020-07-07 06:01 | XMS REPORT | Clinical Summary ---
:1950 Author Organization [facility] Address [address] [place] [address] Care Team Providers Name Role Phone Love Davis MD Primary Care Provider Allergies No Known Allergies Medications Medication Sig Dispensed Refills Start Date End Date Status aspirin 81 MG EC Take 81 mg by 0 Active tablet mouth daily. ezetimibe (ZETIA) 10 Take 10 mg by 0 Active mg tablet mouth daily. omeprazole (PRILOSEC) Take 20 mg by 0 Active 20 MG capsule mouth daily. LISINOPRIL ORAL Take 20 mg by 0 Active mouth. celecoxib (CELEBREX) Take 200 mg by 0 Active 200 MG capsule mouth every 12 (twelve) hours as needed for Pain. cholecalciferol, Take 50,000 Units 0 Active vitamin D3, 50,000 by mouth daily. unit Tab Active Problems Not on file Social History Tobacco Use Types Packs/Day Years Used Date Former Smoker Alcohol Use Drinks/Week oz/Week Comments Yes ocassionaly 4 d rinks a month Sex Assigned at Date Recorded Not on file Job Start Date Occupation Industry Not on file Not on file Not on file Travel History Travel Start Travel End No recent travel history available. Last Filed Vital Signs Not on file Plan of Treatment Not on file Results Not on fileafter 07/07/2019 Insurance Payer Benefit Plan / Subscriber ID Type Phone Address Group AETNA - MEDICARE AETNA MEDICARE HMO xxxxxxxx [address] [place] [address]
--- OUTSIDE RECORDS SUMMARY | 2020-07-07 06:01 | XMS REPORT | Continuity of Care Document ---
:1950 Author Organization [facility] t Address [address] [place] [address] Care Team Providers Name Role Phone Love Davis MD Primary Care Physician ONEIL OLIVEROS Attending Clinician Unavailable ONEIL OLIVEROS Admitting Clinician Unavailable Problems Condition Condition Condition Status Onset Resolution Last Treating Co mments Source Name Details Category Date Date Treatment Clinician Date Tendinitis Tendinitis Disease Active [place] right of right 07-13 Method i rotator rotator 00:00: st cuff cuff 00 Tear of Tear of Disease Active [place] right right 07-13 [facility] rotator rotator 00:00: st cuff cuff 00 Impingemen Impingemen Disease Active [place] t syndrome t syndrome 8-06 [place] of right of right 00:00: st shoulder shoulder 00 Osteoarthr Osteoarthr Disease Active 2015-10 [place] itis of itis of 12-02 [facility] right knee right knee 00:00: st 00 Allergies, Adverse Reactions, Alerts This patient has no known allergies or adverse reactions. Social History Social Habit Start Date Stop Date Quantity Comments Source Sex Assigned At [facility] ethodi Alcohol intake 2016-10-03 2016-10-03 Current drinker [place] [facility] 00:00:00 00:00:00 of alcohol (finding) Tobacco Comment 2016-10-01 2016-10-01 quit at age 39 [place] [facility] 00:00:00 00:00:00 Alcohol Comment 2016-10-01 2016-10-01 social [facility] 00:00:00 00:00:00 Smoking Status Start Date Stop Date Source Former smoker 2016-10-03 00:00:00 2016-10-03 00:00:00 [place] [facility] Medications Ordered Filled Start Stop Current Ordering Indication Dosage Frequency Signature Comments Components Source Medication Medication Date Date Medication? Clinician (SIG) Name Name leflunomide Yes 20mg QD Take 20 mg [facility] (ARAVA) 20 9-17 by mouth [facility] di MG tablet 11:22: daily. st 50 cholecalcif Yes 56036G Take [facility], 4-04 50,000 [facility] - vitamin D3, 14:28: Units by Me dical 50,000 unit 25 mouth Center Tab daily. aspirin 81 Yes 81mg QD Take [address] MG EC 4-04 by mouth [facility] - tablet 14:28: daily. [facility] ezetimibe Yes 10mg QD Take [address] (ZETIA) 10 4-04 by mouth [facility] - mg tablet 14:28: daily. [facility] omeprazole Yes 20mg QD Take [address] (PRILOSEC) 4-04 by mouth [facility] - 20 MG 14:28: daily. Medical capsule 24 [facility] LISINOPRIL Yes 20mg Take [address] ORAL 4-04 by mouth. [facility] - 14:28: [facility] celecoxib Yes 200mg Take [address] (CELEBREX) 4-04 mg by [facility] - 200 MG 14:28: mouth Medical capsule 24 every 12 Center (twelve) hours as needed for Pain. omeprazole 2015-10 Yes 20mg QD Take 20 mg [place] (PriLOSEC) 2-07 by mouth Metho di 20 MG 13:09: daily. st capsule 41 etodolac 2015-10 Yes 300mg Q8H Take 300 [place] (LODINE) 2-07 mg by [facility] 300 MG 13:09: mouth st capsule 41 every 8 (eight) hours. predniSONE 2015-10 Yes 10mg QD Take 10 mg [place] (DELTASONE) 1-20 by mouth Meth magdi 5 mg tablet 00:00: once st 00 daily. azaTHIOprin 2015-10 Yes [place] (IMURAN) 1-12 [facility] 50 mg 00:00: st tablet 00 lisinopril 2015-10 Yes [facility] (PRINIVIL,Z 0-06 [facility] ESTRIL) 10 00:00: st mg tablet 00 ZETIA 10 mg 2016- Yes [place] tablet 9-10 [facility] 00:00: st 00 Procedures This patient has no known procedures. Plan of Care Planned Activity Planned Date Details Comments Source Future Scheduled 2020-07-27 INFLUENZA VACCINE [place] [facility] Test 00:00:00 [code = INFLUENZA VACCINE] Future Scheduled 2014 65+ PNEUMOCOCCAL [facility] Test 00:00:00 VACCINE (1 of 2 - PCV13) [code = 65+ PNEUMOCOCCAL VACCINE (1 of 2 - PCV13)] Future Scheduled 1999 COLONOSCOPY SCREENING [place] [facility] Test 00:00:00 [code = COLONOSCOPY SCREENING] Future Scheduled 1999 SHINGLES VACCINES (#1) [facility] Test 00:00:00 [code = SHINGLES VACCINES (#1)] Results Test Description Test Time Test Comments Results Result Comments Source PROTEIN ELECTROPHORESIS, SERUM 2017-02-05 14:04:00 Test Item Value Reference Range Interpretation Comme nts ALBUMIN FRACTION (BEAKER) (test code 3.6 g/dL 3.5-5.5 = 405) ALPHA 1 FRACTION (BEAKER) (test code 0.3 g/dL 0.2-0.4 = 389) ALPHA 2 FRACTION (BEAKER) (test code 0.7 g/dL 0.5-0.9 = 390) BETA FRACTION (BEAKER) (test code = 0.9 g/dL 0.6-1.1 392) GAMMA GLOBULIN FRACTION (BEAKER) 1.1 g/dL 0.7-1.7 (test code = 391) INTERPRETATION-119 (BEAKER) (test All fractions present in the expe cted code = 2615) distribution. No monoclonal bands detected. [id number]-280 (BEAKER) (test Lauren Abdullahi MD (electro franco code = 2616) signature) PROTEIN TOTAL SERUM, SPEP (BEAKER) 6.6 gm/dL 6.0-8.3 (test code = 2660) CSF CELL COUNT [id number] 17:01:00 Test Item Value Reference Range Interpretation Comments APPEARANCE CSF (BEAKER) (test code Clear Clear = 407) COLOR CSF (BEAKER) (test code = Colorless Colorless 408) RBC CSF (BEAKER) (test code = 409) 3 /cu mm 0-5 WBC CSF (BEAKER) (test code = 1 /cu mm <=5 1020) RBCS FRESH (BEAKER) (test code = 100% Fresh 1444) NUMBER OF CELLS DIFF'D (BEAKER) 4 (test code = 1591) NEUTROPHIL, CSF (BEAKER) (test 0 % 0-5 code = 324) LYMPHS CSF (BEAKER) (test code = 50 % 40-80 438) MONO/MACROPHAGE CSF (BEAKER) (test 50 % 15-45 H code = 439) EOSINOPHILS CSF (BEAKER) (test 0 % <=0 code = 360) BASO CSF (BEAKER) (test code = 0 % <=0 440) TUBE NUMBER CSF (BEAKER) (test 1 code = 2678) PROTEIN, [id number] 14:41:00 Test Item Value Reference Range Interpretation Comments PROTEIN CSF (BEAKER) (test code = 42 mg/dL 15-45 378) GLUCOSE, [id number] 14:35:00 Test Item Value Reference Range Interpretation Comments GLUCOSE CSF (BEAKER) (test code = 58 mg/dL 40-70 406)
[2020-07-07] MEDS ORDERED: Ringers Lactate 1,000 ML IV ONE (06:24)
[2020-07-07] MEDS ORDERED: CEFAZOLIN/SWI 1gm 1 GM/10 ML SYR ONE (06:25)
[2020-07-07] MEDS ORDERED: propofoL 200 MG/20 ML VIAL IV ONE (06:56)
[2020-07-07] MEDS ORDERED: MIDAZOLAM HCL 2 MG/2 ML INJ ONE (06:57)
[2020-07-07] MEDS ORDERED: LIDOCAINE 2% MPF 5 ML VIAL ONE (06:58)
[2020-07-07] MEDS ORDERED: FENTANYL CITR 100 MCG/2 ML ONE (06:58)
[2020-07-07] MEDS ORDERED: ONDANSETRON 4 MG/2 ML VIAL ONE ×2 (07:00→08:18)
[2020-07-07] MEDS ORDERED: EPHEDRINE SULF 50 MG/ML VIAL ONE (07:19)
[2020-07-07 07:59] VITALS: TEMP 97
[2020-07-07] MEDS ORDERED: HYDROMORPHONE HCL 1 MG/ML INJ ONE (08:18)
--- NOTE | 2020-07-07 08:47 | OP ---
Date of Procedure: 07/07/2020 Surgeon: Feroz Aguilar MD Line Cook: DANICA Rivers. Preoperative Diagnoses: Right arm and left hip hematoma. Postoperative Diagnoses: Right arm and left hip hematoma. Procedure: Incision and drainage of the right arm and left hip hematoma. Estimated Blood Loss: Minimal. Specimen: Culture and sensitivity. Findings: As above. Anesthesia: General. Complications: None. Drains: DEBI #10 flat x2. Disposition: The patient tolerated procedure in stable condition, taken to Recovery in good general condition. Procedure In Detail: The patient was brought to the OR and placed in supine position. General anest hesia was begun. The patient was prepped and draped in usual sterile fashion. Marcaine 0.5% was inf iltrated locally. A 15 blade was used to make a 2 cm incision on the bottom of the left hip hematoma , then a large amount of old blood and seroma evacuated, loculations broken up. Wound irrigated. Cu ltures done. Bleeding controlled with cautery. A Amaury-Matta drain #10 flat placed and secured wi th 3-0 nylon and then 2-0 chromic used to close subcu tissue, and then 3-0 nylon used to close the sk in. Sterile dressing applied. On the right arm, there was a necrotic area approximately 2 x 3 cm. It was excised and then hematoma and fluid were evacuated, loculations were broken up. Wound was irr igated. A Amaury-Matta drain #10 flat was placed secured with 3-0 nylon and then 2-0 chromic used t o close the small wound and subcu tissue. 3-0 nylon was used to close skin. Sterile dressing was ap plied. The patient was awakened and taken to Recovery in good general condition. Discharge Note: The patient will go to day surgery and home when stable. Disposition: Home. Condition: Stable. Discharge Instructions: Resume home medications and diet. Activity as tolerated. Keep dressing mp an and dry, sponge bathe only. Follow up my office in 1 week, call for appointment. Tylenol No. 3 o ne tablet p.o. q.4 p.r.n. pain, Keflex 500 mg p.o. q.6. Record DEBI q.12. Bring record to office. RAUL/VERONICA Voice ID: [id number] Report ID: [id number]
[2020-07-07] MEDS ORDERED: HYDROCODONE/APAP 7.5/325 MG TAB ONE (08:48)
[2020-07-07 09:44] VITALS: BP 97/42; O2SAT 95
== END 2020-07-07 09:35 | disposition home or self-care (01) ==
LOC: OR 05:53
PROVIDERS: ATTEND Surgery
PROC: 0J9M00Z Drainage of Left Upper Leg Subcutaneous Tissue and Fascia with Drainage Device, Open Approach (ICD-10-PCS; 2020-07-07)
PROC: 0J9D00Z Drainage of Right Upper Arm Subcutaneous Tissue and Fascia with Drainage Device, Open Approach (ICD-10-PCS; principal; 2020-07-07 07:00)
DX: S40.021A Contusion of right upper arm, initial encounter (principal); S70.02XA Contusion of left hip, initial encounter; X58.XXXA Exposure to other specified factors, initial encounter; Z20.828 Contact with and (suspected) exposure to other viral communicable diseases
CPT/HCPCS: 93005; 87070; 85025; 80048; 36415; 87205; 87075; 71046; 10140 ×2; U0002; J2704; J2250; J3010; J1170; J0690; J7120; J2405 ×2

== ENCOUNTER 2021-02-12 08:03 | Day surgery (SDC) | payer OTHER ==
[2021-02-09 17:23] LABS: Absolute Lymphocytes (CBC) 1.7 K/uL (0.7-4.9); Basophils % 1.4 % (0-1.3); Lymphocytes % 26.2 % (15.3-44.8); MPV 7.9 fL (7.6-11.3); RBC Red Blood Cell Count 4.92 M/uL (4.33-5.43)
--- NOTE | 2021-02-09 17:33 | RAD REPORT ---
EXAM DESCRIPTION: RAD - Chest Pa And Lat (2 Views) - 02/09/2021 5:27 pm CLINICAL HISTORY: preop, pending soft tissue mass removal at the elbow COMPARISON: Two view chest June 2020 TECHNIQUE: Frontal and lateral views of the chest were obtained. FINDINGS: The lungs are underinflated compared to prior study. This accentuates heart size and sligh tly accentuates the interstitial pattern. No focal mass or consolidation. Failure and volume overload are not suspected. Heart size is normal and central vasculature is within normal limits. No pleural effusion or pneumot horax seen. No acute bony finding noted. No aortic abnormality. IMPRESSION: No acute cardiopulmonary process.
[2021-02-09 17:36] LABS: Potassium 4.1 mmol/L (3.5-5.1)
[2021-02-12] MEDS ORDERED: Ringers Lactate 1,000 ML IV ONE (09:59)
[2021-02-12] MEDS ORDERED: CEFAZOLIN/SWI 1gm 1 GM/10 ML SYR ONE (09:59)
[2021-02-12] MEDS ORDERED: FENTANYL CITR 100 MCG/2 ML ONE (10:05)
[2021-02-12] MEDS ORDERED: MIDAZOLAM HCL 2 MG/2 ML INJ ONE (10:05)
[2021-02-12] MEDS ORDERED: dexAMETHasone 10 MG/ML VIAL ONE (10:05)
[2021-02-12] MEDS ORDERED: LIDOCAINE 1% MPF 5 ML VIAL ONE (10:05)
[2021-02-12] MEDS ORDERED: propofoL 200 MG/20 ML VIAL IV ONE (10:05)
[2021-02-12] MEDS ORDERED: GLYCOPYRROLATE 0.2 MG/ML SYR ONE (11:03)
[2021-02-12] MEDS ORDERED: KETOROLAC 30 MG/ML INJ ONE (11:31)
[2021-02-12] MEDS ORDERED: EPHEDRINE SULF 50 MG/ML VIAL ONE (11:45)
[2021-02-12 12:10] VITALS: O2SAT 97
--- NOTE | 2021-02-12 12:29 | OP ---
Date of Procedure: 02/12/2021 Surgeon: Feroz Aguilar MD Preoperative Diagnosis: Right arm mass. Postoperative Diagnosis: Right arm mass. Procedure: Wide excision of right arm mass 8 x 4 cm with layered closure. Estimated Blood Loss: Minimal. Specimen: Right arm mass. Findings: Fatty tissue. Anesthesia: General. Complications: None. Drains: Quarter-inch [place]. Disposition: The patient tolerated the procedure in stable condition and taken to Recovery in good g eneral condition. Procedure In Detail: The patient was brought to the OR, placed in supine position. General anesthes ia begun. The patient was prepped and draped in usual sterile fashion. Marcaine 0.5% infiltrated lo oswaldo. Then, a 15-blade was used to make an 8 x 4 cm incision to excise the excess skin and overlyin g a palpable mass, fatty in nature. Subcutaneous tissue divided. The entire mass was excised and se nt to Pathology as specimen. Wound irrigated. Bleeding controlled with cautery. A [place] drain qu arter-inch placed and secured with 3-0 nylon and 2-0 chromic was used to approximate the subcutaneous tissue and 4-0 nylon was used to close the skin. Sterile dressing was applied. The patient was sofía kened and taken to Recovery in good general condition. Discharge Note: The patient will go to Day Surgery and home when stable. Disposition: Home. Condition: Stable. Discharge Instructions: Resume home medications and diet. Activity as tolerated. No heavy lifting. Keep dressing clean, dry, and plastic bag over dressing when showering. Follow up in my office in 1 week. Call for appointment. Tylenol No.3 one tablet q.4 p.r.n. pain, Keflex 500 mg p.o. q.6. /MODL Voice ID: [id number] Report ID: [id number]
[2021-02-12 12:33] VITALS: BP 156/79; TEMP 96.7
== END 2021-02-12 13:25 | disposition home or self-care (01) ==
LOC: OR 08:03
PROVIDERS: ATTEND Surgery
PROC: 0JBD0ZZ Excision of Right Upper Arm Subcutaneous Tissue and Fascia, Open Approach (ICD-10-PCS; principal; 2021-02-12 10:00)
DX: D17.21 Benign lipomatous neoplasm of skin and subcutaneous tissue of right arm (principal); Z20.822 Contact with and (suspected) exposure to COVID-19
CPT/HCPCS: 11406; 93005; 85025; 80048; 36415; 88304; 71046; U0003; J2704; J2250; J3010; J1100; J0690; J7120; 88305